=== PATIENT | male | born 1985 | race Caucasian/White ===

== ENCOUNTER 2019-12-19 15:43 | Outpatient (REF) | payer BC, SELFPAY ==
[2019-12-20 07:40] LABS: COVID-19 RT-PCR UVMMC Result Negative (Negative)
== END 2019-12-19 16:03 ==
LOC: NCHCN 15:43
PROVIDERS: PCP Nurse Practitioner Family; Visit Provider Physician Assistant
DX: Z11.59 Encounter for screening for other viral diseases (principal)
CPT/HCPCS: U0003

== ENCOUNTER 2022-01-02 11:53 | Emergency (ER) | payer OTHER, SELFPAY ==
--- NOTE | 2022-01-02 12:17 | ED.GENADUL_ITS ---
Discharge Plan Disposition Patient Disposition: HOME Condition: Stable Discharge Details Clinical Impression: Left flank pain Primary Care Provider: Colleen Malin ED Provider: Jennifer Lu Discharge Instructions Instructions: Flank Pain (ED) Additional Instructions: You are leaving prior to completion of your evaluation here. Your urine is pending. Imaging has not yet been performed. As discussed, without these things I am unable to rule out any significant pathology such as kidney stone. This may be associated with muscular discomfort but again, it is unclear at this time. He may use Tylenol and/or ibuprofen as needed for discomfort. Please continue to encourage hydration. Follow-up with primary care soon as possible for reevaluation. If you decide that you would like to continue a longer course for diagnostic work-up, return anytime for continued care. Please return immediately if you develop fever/chills, increased pain, rash, difficulty breathing, difficulty urinating or other new/worsening symptoms. Referrals: Colleen Malin [Primary Care Provider] - Discharge Data Discharge Date/Time-TO BE ENTERED AT DEPARTURE: 01/02/22 13:55 Medical Decision Making Patient is a pleasant 36 year old male, accompanied by his , with c/c of left sided back pain. He states that it started during the night and woke him from sleep. He denies trauma but states he has pulled muscles in the past and it feels similar. It differs in the quality- reports more of a sharp pain with rotational movements, particularly to the right. Patient works for [employer] and is quite physically active. Was concerned that it may be a kidney stone. Denies hematuria, no hx of stones. Drinks large amount of water daily. Denies fevers/chills, trauma, radiation of pain, change in bowel or bladder habits. On exam, patient appears nontoxic. He has no midline tenderness. No paraspinal tenderness. Full ROM although discomfort elicited with rotation to the right. He has no CVA tenderness with percussion. Abdomen benign. Gait normal, strength normal, no radiation of pain provoked. Overall, patients exam is reassuring. However, I am concerned that this disco mfort woke him from sleep. He appears comfortable now and finds being more immobile helpful. This lowers my concern for stone. However, as he has had been worken from sleep, will move forward with more of evaluation. Abdomen is benign. We discussed imaging, will hold off on CT as I do not feel this is indicated, will move forward wiht renal US. Will obtain UA. Prior to obtaining the results from the UA or the US, patient wishes to leave. He reports that he is hungry and does not want to wait. He appears in no distress as this time. We discussed possibility of stone, UTI vs. other. He would prefer to f/u with PCP. He is aware that he may return at any time for continued evaluation and treatment. Patient demonstrates capacity and is with significant other. HPI General Mode of arrival: ambulatory . Date/Time Provider Initiated Documentation: 01/02/22 12:17 . Limitations to Documentation: no limitations . Information obtained by: patient, family () and RN notes reviewed . History of Present Illness 36 year old M presents to the emergency department with the chief complaint of left flank pain, described as mild, with intensity rated at 2. Quality is described as stabbing, and is localized to the back. Patient reports no radiation. Patient started experiencing this hour(s) (began in andrés middle of the night) and it has been intermittent. Immobilization improves symptom(s), Movement worsens symptoms (twisting to the right) . Patient notes no other symptoms.; denies chest pain, cough, fever/chills, loss of appetite, nausea/vomiting, rash and shortness of breath. Patient did receive the following treatments prior to arrival, none Related Data Allergies Allergy/AdvReac Type Severity Reaction Status Date / Time No Known Allergies Allergy Unverified 01/02/22 12:41 Review of Systems Constitutional Constitutional: Reports as per HPI, Denies chills and Denies fever(s) Cardiovascular Cardiovascular: Denies chest pain and Denies dyspnea Respiratory Respiratory: Denies cough and Denies dyspnea Gastrointestinal Gastrointestinal: Denies abdominal pain, Denies change in bowel habits and Denies fecal incontinence Genitourinary Genitourinary: Reports as per HPI, Denies urinary hesitancy and Denies urinary incontinence Musculoskeletal Musculoskeletal: Reports as per HPI, Reports back pain, Denies muscle weakness, Denies numbness, Denies radiating pain into limb and Denies tingling Integumentary/Breasts Skin/Breast: Reports as per HPI and Denies rash Neurologic Neurologic: Reports as per HPI, Denies localized weakness, Denies numbness, Denies radicular pain, Denies sensory deficit, Denies tingling and Denies paresthesias PFSH All Active Problems (Updated 01/02/22 @ 13:50 by DARREL Matias) Foreign body in eye (Acute) Left flank pain (Acute) Social History Smoking/Tobacco Use Status: Never Smoking risk assessment performed?: Yes Alcohol Intake: current Alcohol Intake frequency: 0-2 drinks per day Alcohol type: beer Drug use: Never Substance use type: does not use Do you feel safe at home: Yes Do you feel safe in your relationship?: Yes Exam Const General: cooperative, healthy appearing, comfortable, no acute distress, well developed and well groomed Nutritional Appearance: average body habitus and well nourished Orientation: alert and awake Neck Neck: normal visual inspection, full ROM, no lymphadenopathy and no meningeal signs Resp Effort & Inspection: normal respiratory effort and able to speak in complete sentences Auscultation: clear to auscultation bilaterally, no rales, no rhonchi and no wheezes Cardio Rate: regular rate Rhythm: regular rhythm Heart Sounds: S1 normal and S2 normal GI Inspection: normal to inspection Palpation: soft, no hepatosplenomegaly, no guarding, not rigid and nontender Back/Spine/Pelvis Back: no CVA tenderness Cervical Spine: normal cervical lordosis, No cervical spinal tenderness and No step off deformity Thoracic/Lumbar Spine: thoracic and lumbar spine normal to inspection, thoraco- lumbar ROM normal, No bend over test abnormal, pain with thoraco-lumbar ROM (discomfort with rotation to the right or more provokative rotations), No paraspinal tenderness, No thoraco-lumbar spasm, No thoracic spinal tenderness, No lumbar spinal tenderness and No straight leg raise positive Sacroiliac joints: bilaterally nontender Skin General skin exam: no rashes or lesions noted Neuro General: patient alert and patient awake Cognition: normal cognition Speech: speech normal Gait: normal gait Motor: muscle tone normal throughout, strength 5/5 throughout, no movement abnormalities noted and no fasciculations Sensory Exam: no sensory deficits noted (no saddle paresthesias) DTR's: Rt Patellar: 2+, Lt Patellar: 2+, Rt Ankle: 2+ and Lt Ankle: 2+ Extrem General: normal to inspection, full ROM, capillary refill normal, no joint enlargement, no pedal edema, no calf tenderness and normal gait Psych Appearance: grossly normal and well kempt Mental Status: mental status grossly normal Speech and Movement: speech and movement normal
[2022-01-02 12:36] VITALS: BP 142/91; PULSE 76; TEMP 36.6; O2SAT 97
[2022-01-02 13:50] LABS: Bilirubin Negative (Negative); Blood Negative (Negative); Clarity Clear (Clear); Glucose Negative (Negative); Ketones Negative (Negative); Leukocyte Esterase Negative (Negative); Nitrite Negative (Negative); Specific Gravity 1.025 (1.005-1.025); Urobilinogen 0.2 EU/dL (Up TO 0.2)
== END 2022-01-02 13:55 | disposition home or self-care (01) ==
PROVIDERS: Emergency Provider Physician Assistant; PCP Nurse Practitioner Family
DX: R10.32 Left lower quadrant pain (principal); Z53.29 Procedure and treatment not carried out because of patient's decision for other reasons
CPT/HCPCS: 99282; 81003

== ENCOUNTER 2022-12-29 00:31 | Outpatient (CLI) | payer OTHER, SELFPAY ==
--- NOTE | 2022-12-29 08:30 | DI.MRI_ITS ---
Exam(s) MR LUMBAR SPINE WO EXAM: MR LUMBAR SPINE WO CLINICAL HISTORY: Persistent pain despite treatment,RADICULOPATHY BOTH LOWER EXT,M54.16. TECHNIQUE: Multiplanar multisequence MRI of the Lumbar spine was performed. COMPARISON: No exams were available for comparison FINDINGS: Bones: The last intervertebral disc space is designated the L5/S1 level for the numbering purpose of this examination. The vertebral body heights are well maintained. Alignment is satisfactory. There is homogeneous red marrow reconversion throughout the lumbar spine the findings could be secondary to anemia among other causes. Clinical correlation recommended. Cord: The conus tip ends at the T12 level. It is of normal size and signal intensity. T12-L1: No disc herniations or bulges are present. No central spinal canal or neural foraminal stenos is. L1-2: No disc herniations or bulges are present. No central spinal canal or neural foraminal stenosis . L2-3: No disc herniations or bulges are present. No central spinal canal or neural foraminal stenosis . L3-4: No disc herniations or bulges are present. No central spinal canal or neural foraminal stenosis . L4-5: No disc herniations or bulges are present. No central spinal canal or neural foraminal stenosis . L5-S1: Minimal disc bulging eccentric to the right. No visible nerve root impingement. No central s daniel canal or neural foraminal stenosis. The visualized SI joints and sacrum are well maintained. Soft tissues: The paraspinal soft tissues are unremarkable. IMPRESSION: Minimal right-sided disc bulging at L5-S1 without definite nerve root impingement. No evidence of si gnificant spinal stenosis or neuroforaminal narrowing. Red marrow reconversion. Clinical correlation recommended. DATA REPOSITORY:
== END 2022-12-29 00:51 ==
LOC: DI 00:31
PROVIDERS: PCP Nurse Practitioner Family; Visit Provider Nurse Practitioner Family
DX: M54.16 Radiculopathy, lumbar region (principal)
CPT/HCPCS: 72148

== ENCOUNTER 2023-01-03 18:03 | Outpatient (REF) | payer OTHER, SELFPAY ==
[2023-01-03 16:01] LABS: Abs Immature Grans 0.01 10^3/uL (0.0-0.06); Absolute Basophil Count 0.06 10^3/uL (0.0-0.2); Absolute Eosinophil Count 0.13 10^3/uL (0.0-0.7); Absolute Lymphocyte Count 1.82 10^3/uL (1.2-3.4); Absolute Monocyte Count 0.46 10^3/uL (0.1-0.8); Eosinophils % 2.1; HCT 47.7 % (40.0-50.0); HGB 16.7 g/dL (13.5-17.5); Immature Grans % 0.2; Lymphocytes % 29.4; MCV 83 fL (80-95); MPV 8.9 fL (8.0-11.0); Monocytes % 7.4; Neutrophils % 59.9; Platelet Count 289 10^3/uL (130-400); RBC 5.75 10^6/uL (4.36-5.78); RDW 11.9 % (11.8-14.1); RDW-SD 36.1 fL; WBC 6.18 10^3/uL (4.4-10.8)
[2023-01-03 16:23] LABS: ALT 103 U/L (16-63); AST 64 U/L (15-37); Albumin 4.3 g/dL (3.4-5.0); Alkaline Phosphatase 77 U/L (46-116); Anion Gap 9.1 mmol/L (3-11); BUN 11 mg/dL (7-18); Bilirubin, Total 1.5 mg/dL (0.2-1.0); CO2 26.9 mmol/L (21.0-32.0); Calcium 9.4 mg/dL (8.5-10.1); Chloride 102 mmol/L (98-107); Estimated GFR 98.18 (mL/min/1.73m2); Glucose 101 mg/dL (74-106); Potassium 3.6 mmol/L (3.5-5.1); Sodium 138 mmol/L (136-145); TSH (W/Ref FT4) 1.18 uIU/mL (0.36-3.74)
[2023-01-03 17:49] LABS: Hemoglobin A1C 5.6 % (<5.7)
== END 2023-01-03 18:04 | disposition home or self-care (01) ==
LOC: LBO 18:03
PROVIDERS: PCP Nurse Practitioner Family; Visit Provider Nurse Practitioner Family
DX: D75.9 Disease of blood and blood-forming organs, unspecified (principal); R53.83 Other fatigue; Z13.1 Encounter for screening for diabetes mellitus
CPT/HCPCS: 36415; 80053; 83036; 84443; 85025

== ENCOUNTER 2023-01-24 13:46 | Outpatient (CLI) | payer OTHER, SELFPAY ==
[2023-01-24 13:24] LABS: Abs Immature Grans 0.01 10^3/uL (0.0-0.06); Absolute Basophil Count 0.04 10^3/uL (0.0-0.2); Absolute Eosinophil Count 0.12 10^3/uL (0.0-0.7); Absolute Lymphocyte Count 1.98 10^3/uL (1.2-3.4); Absolute Neutrophil Count 3.15 10^3/uL (1.2-6.7); Basophils % 0.7; Eosinophils % 2.1; HCT 48.6 % (40.0-50.0); Immature Grans % 0.2; Lymphocytes % 34.1; MCV 83 fL (80-95); Monocytes % 8.6; Neutrophils % 54.3; Platelet Count 278 10^3/uL (130-400); RBC 5.87 10^6/uL (4.36-5.78); RDW-SD 36.5 fL
[2023-01-24 14:00] LABS: Iron 62 ug/dL (65-175); Total Iron Binding Capacity 354 ug/dL (250-450); Transferrin Sat 18 % (20-55)
[2023-01-24 14:16] LABS: ALT 151 U/L (16-63); AST 88 U/L (15-37); Albumin 4.4 g/dL (3.4-5.0); Alkaline Phosphatase 74 U/L (46-116); Anion Gap 9.1 mmol/L (3-11); BUN 13 mg/dL (7-18); Bilirubin, Total 1.5 mg/dL (0.2-1.0); CO2 26.9 mmol/L (21.0-32.0); CREATININE 1.1 mg/dL (0.70-1.30); Calcium 8.9 mg/dL (8.5-10.1); Chloride 102 mmol/L (98-107); Estimated GFR 87.57 (mL/min/1.73m2); Ferritin 205 ng/mL (26-388); Glucose 104 mg/dL (74-106); Sodium 138 mmol/L (136-145); Total Protein 8.2 g/dL (6.4-8.2)
[2023-01-24 14:27] LABS: LDH 227 U/L (85-227)
[2023-01-25 10:56] LABS: IgA 157 mg/dL (85-499); IgG 1045 mg/dL (610-1616); IgM 125 mg/dL (35-242); Kappa Free Light Chain 1.68 mg/dL (0.33-1.94); Lambda Free Light Chain 1.14 mg/dL (0.57-2.63)
[2023-01-25 14:20] LABS: Albumin g/dL 4.9 g/dL (3.6-5.2); Total Protein 7.7 g/dL (6.3-8.2)
[2023-01-26 15:44] LABS: PSA, Ultrasensitive 0.77 ng/mL (<= 2.0)
== END 2023-01-24 13:47 | disposition home or self-care (01) ==
LOC: LBO 13:47
PROVIDERS: PCP Nurse Practitioner Family; Visit Provider Internal Medicine Hematology & Oncology
DX: D75.89 Other specified diseases of blood and blood-forming organs (principal); R79.89 Other specified abnormal findings of blood chemistry
CPT/HCPCS: 36415; 80053; 82784; 84153; 82728; 83540; 83550; 83615; 83883; 84165; 85025